=== PATIENT | female | born 1940 | race African-American/Black ===

== ENCOUNTER 2020-01-21 16:12 | Emergency (ER) | payer OTHER ==
[~2020-01-21] VITALS: Ht 165.1 cm; Wt 66.2 kg
[2020-01-21 16:12] VITALS: BP 108/47
[~2020-01-21 16:12] MED LIST: ASPIR-TRIN325 MG PO; CIPRO500 MG PO; CRESTOR20 MG PO; FIORINAL 50-321 EACH PO; FLAGYL500 M1 PO; LASIX 40 MG TAB40 M1 PO; LISINOPRIL5 MG PO; METOPROLOL SUCC25 M1; NITROFURANTOIN100 MG PO; PROAIR HFA8.5 GM IH; PROBIOTIC1 EAC1 PO; PROTONIX PO; TOPROL XL50 MG PO; TOVIAZ4 M1 PO; TOVIAZ4 MG; TRICOR145 MG PO; TRILIPIX135 MG; TYLENOL325 MG PO; XALATAN2.5 ML OPHTHALMIC; ZETIA10 MG PO
== END 2020-01-21 17:18 | disposition home or self-care (01) ==
LOC: ER 16:12
DX: G89.29 Other chronic pain (principal); M54.5 Low back pain; R26.9 Unspecified abnormalities of gait and mobility; I10 Essential (primary) hypertension; K21.9 Gastro-esophageal reflux disease without esophagitis; F17.210 Nicotine dependence, cigarettes, uncomplicated; Z88.8 Allergy status to other drugs, medicaments and biological substances; Z88.5 Allergy status to narcotic agent; Z88.1 Allergy status to other antibiotic agents; Z98.51 Tubal ligation status; Z79.899 Other long term (current) drug therapy; Z79.82 Long term (current) use of aspirin